=== PATIENT | male | born 1955 | race Two or more races ===

== ENCOUNTER 2018-04-08 14:37 | Inpatient (IN) | payer MEDICAID, OTHER ==
[~2018-04-08] VITALS: Ht 180.3 cm; Wt 83.0 kg
[2018-04-08] MEDS ORDERED: ASPirin 81 mg TAB PO ONE (15:45)
[2018-04-08] MEDS ORDERED: ONDANSETRON HCL 4 MG/2 ML VIAL IV ONE (15:45)
[2018-04-08] MEDS ORDERED: SODIUM CHLORIDE 0.9% 1,000 ML IV ONE ×2 (15:45→17:15)
[2018-04-08 16:12] LABS: Basophils # (auto) 0.1 uL; Basophils % (auto) 0.8 % (0.0-2.0); Eosinophils # (auto) 0.1 uL; Eosinophils % (auto) 0.7 % (0.0-7.0); Hematocrit 39.4 % (41.0-53.0); Hemoglobin 13.5 g/dL (13.5-17.5); Lymphocytes # (auto) 1.4 uL; Lymphocytes % (auto) 12.5 % (10.0-50.0); Mean Corpuscular Hemoglobin 32.4 pg (28.0-32.0); Mean Corpuscular Hgb Conc. 34.3 g/dL (32.0-36.0); Mean Corpuscular Volume 94.4 fL (80.0-100.0); Monocytes # (auto) 0.7 uL; Monocytes % (auto) 6.7 % (0.0-12.0); Neutrophils # (auto) 8.6 uL; Neutrophils % (auto) 79.3 % (37.0-80.0); Platelet Count (auto) 153 10^3/uL (140-450); Red Blood Cells 4.17 10^6/uL (4.5-5.90); Red Cell Distribution Width 14.2 % (11.8-14.3); White Blood Cell 10.8 10^3/uL (4.4-10.8)
[2018-04-08 16:25] LABS: INR 1.15 (0.9-1.15); Partial Thromboplastin Time 34.8 sec (23.78-33.04); Prothrombin Time 12.2 sec (9.27-12.13)
[2018-04-08 16:43] LABS: Albumin 3.4 g/dL (3.4-5.0); BUN/Creatinine Ratio 8.3; Bilirubin, Total 1.3 mg/dL (0.2-1.0); Calcium 8.3 mg/dL (8.5-10.1); Potassium 3.8 mmol/L (3.5-5.1); Total Protein 7.8 g/dL (6.4-8.2)
[2018-04-08] MEDS ORDERED: ENOXAPARIN SOD 80 MG/0.8ML SYRINGE SC ONE (17:00)
[2018-04-08] MEDS ORDERED: NITROGLYCERIN 0.4 MG SL TAB SL ONE (17:00)
[2018-04-08] MEDS ORDERED: LORazepam 0.5 MG TAB PO PRN (17:15)
[2018-04-08] MEDS ORDERED: ALBUTEROL SULF 2.5 MG/0.5ML(0.5%) NEB SOLN NEB PRN (17:15)
[2018-04-08] MEDS ORDERED: ACETAMINOPHEN 500 MG TAB PO PRN (17:15)
[2018-04-08] MEDS ORDERED: NITROGLYCERIN 0.4 MG SL TAB SL PRN (17:15)
[2018-04-08] MEDS ORDERED: PROMETHAZINE HCL 25 MG/ML 1ML IV PRN (17:15)
[2018-04-08] MEDS: ALBUTEROL SULF 2.5 MG/0.5ML(0.5%) NEB SOLN NEB SCH ×2 (18:10→23:07)
[2018-04-08] MEDS: SODIUM CHLORIDE 0.9% 1,000 ML IV SCH (18:22)
[2018-04-08] MEDS: PANTOPRAZOLE 40 MG TAB PO SCH (18:22)
[2018-04-08] MEDS: DOXYCYCLINE 100MG/250ML 250 ML IV SCH (18:22)
[2018-04-08 18:52] VITALS: BP 98/64
[2018-04-08 20:47] LABS: Alcohol, Urine < 3.0 mg/dL (0-5); Amphetamine Screen, Urine NEGATIVE (NEGATIVE); Barbiturate Scree,Urine NEGATIVE (NEGATIVE); Benzodiazephine Screen, Urine POSITIVE (NEGATIVE); Cannabinoid Screen, Urine NEGATIVE (NEGATIVE); Cocaine Screen, Urine NEGATIVE (NEGATIVE); Opiate Scree,Urine POSITIVE (NEGATIVE); Phencyclidine Screen, Urine NEGATIVE (NEGATIVE)
[2018-04-08] MEDS: ENOXAPARIN SOD 80 MG/0.8ML SYRINGE SC SCH (21:25)
[2018-04-08] MEDS: ATORVASTATIN 20 MG TAB PO SCH (21:25)
[2018-04-09] VITALS (8 sets, daily range): BP systolic 113–132; BP diastolic 53–73
[2018-04-09] MEDS: SODIUM CHLORIDE 0.9% 1,000 ML IV SCH ×3 (01:09→16:17)
[2018-04-09] MEDS: TEMAZEPAM 15 MG CAP PO PRN ×2 (02:00→21:52)
[2018-04-09] MEDS: MORPHINE SULFATE 4 MG/ML SYR/VIAL IV PRN ×3 (02:26→17:25)
[2018-04-09] MEDS ORDERED: PRO20T GT (05:05)
[2018-04-09] MEDS ORDERED: OMEP20TA PO (05:05)
[2018-04-09] MEDS ORDERED: ALBUAER3 IN ×2 (05:13→05:23)
[2018-04-09] MEDS ORDERED: PRAM0.5T PO (05:13)
[2018-04-09] MEDS ORDERED: TEMA30CA PO (05:13)
[2018-04-09] MEDS ORDERED: PERCOT PO (05:13)
[2018-04-09] MEDS ORDERED: ALPR0.5T7 PO (05:13)
[2018-04-09] MEDS ORDERED: ALPR0.254 PO (05:15)
[2018-04-09] MEDS ORDERED: CARB1TAB44 PO (05:15)
[2018-04-09] MEDS ORDERED: METO10TA3 PO (05:15)
[2018-04-09] MEDS ORDERED: DICL1GEL26 (05:23)
[2018-04-09] MEDS ORDERED: MORP30TA (05:23)
[2018-04-09] MEDS ORDERED: DOCU-94 PO (05:23)
[2018-04-09] MEDS ORDERED: TIOTCAP IN (05:23)
[2018-04-09] MEDS ORDERED: CARB25TA22 PO (05:23)
[2018-04-09] MEDS ORDERED: CHOL20007 PO (05:23)
[2018-04-09] MEDS ORDERED: FLUT500M2 INH (05:23)
[2018-04-09] MEDS ORDERED: ATOR10TA52 PO (05:23)
[2018-04-09] MEDS ORDERED: TAMS0.4C36 (05:23)
[2018-04-09] MEDS: DOXYCYCLINE 100MG/250ML 250 ML IV SCH ×2 (06:00→16:50)
[2018-04-09 06:16] LABS: Basophils # (auto) 0.1 uL; Basophils % (auto) 1.1 % (0.0-2.0); Eosinophils # (auto) 0.2 uL; Eosinophils % (auto) 3.1 % (0.0-7.0); Hematocrit 36.4 % (41.0-53.0); Hemoglobin 12.1 g/dL (13.5-17.5); Lymphocytes # (auto) 1.4 uL; Lymphocytes % (auto) 17.7 % (10.0-50.0); Mean Corpuscular Hemoglobin 31.8 pg (28.0-32.0); Mean Corpuscular Hgb Conc. 33.3 g/dL (32.0-36.0); Mean Corpuscular Volume 95.5 fL (80.0-100.0); Monocytes # (auto) 0.5 uL; Monocytes % (auto) 6.9 % (0.0-12.0); Neutrophils # (auto) 5.7 uL; Neutrophils % (auto) 71.2 % (37.0-80.0); Nucleated Red Blood Cells % 0.1 %; Platelet Count (auto) 98 10^3/uL (140-450); Red Blood Cells 3.81 10^6/uL (4.5-5.90); Red Cell Distribution Width 14.5 % (11.8-14.3); White Blood Cell 7.9 10^3/uL (4.4-10.8)
[2018-04-09] MEDS: HYDROcodone-ACET 5/325MG TAB PO PRN (06:38)
[2018-04-09 06:41] LABS: Albumin 2.3 g/dL (3.4-5.0); BUN/Creatinine Ratio 12.2; Calcium 7.8 mg/dL (8.5-10.1); Total Protein 6.4 g/dL (6.4-8.2)
[2018-04-09] MEDS: ALBUTEROL SULF 2.5 MG/0.5ML(0.5%) NEB SOLN NEB SCH ×3 (06:47→18:22)
[2018-04-09] MEDS: MORPHINE SULF INJ 2 MG/ML SYRINGE 1ML IV PRN (09:07)
[2018-04-09] MEDS: ASPirin 81 mg TAB PO SCH (09:07)
[2018-04-09] MEDS: ENOXAPARIN SOD 80 MG/0.8ML SYRINGE SC SCH ×2 (09:07→21:51)
[2018-04-09] MEDS: PANTOPRAZOLE 40 MG TAB PO SCH (09:07)
[2018-04-09] MEDS: METOPROLOL TARTRATE 25 MG TAB PO SCH ×2 (10:00→21:51)
[2018-04-09] MEDS: ATORVASTATIN 20 MG TAB PO SCH (21:50)
[2018-04-10] MEDS: ALBUTEROL SULF 2.5 MG/0.5ML(0.5%) NEB SOLN NEB SCH ×5 (00:27→19:05)
[2018-04-10] MEDS: SODIUM CHLORIDE 0.9% 1,000 ML IV SCH ×4 (00:45→23:43)
[2018-04-10] MEDS: MORPHINE SULFATE 4 MG/ML SYR/VIAL IV PRN (02:35)
[2018-04-10 05:24] VITALS: BP 117/53
[2018-04-10] MEDS: DOXYCYCLINE 100MG/250ML 250 ML IV SCH ×2 (06:00→18:08)
[2018-04-10] MEDS: HYDROcodone-ACET 5/325MG TAB PO PRN (06:32)
[2018-04-10 08:07] LABS: Alanine Aminotransferase 30 U/L (16-61); Albumin 2.5 g/dL (3.4-5.0); Anion Gap 12 (5-15); Aspartate Aminotransferase 60 U/L (15-37); BUN/Creatinine Ratio 8.3; Blood Urea Nitrogen 6 mg/dL (7-18); Carbon Dioxide 21 mmol/L (21-32); Chloride 107 mmol/L (98-107); GFR African American 142 mL/min; GFR Non-African American 117 mL/min; Glucose 78 mg/dL (74-106); Sodium 140 mmol/L (136-145)
[2018-04-10 08:10] LABS: Alkaline Phosphatase 80 U/L (45-117); Bilirubin, Total 0.9 mg/dL (0.2-1.0); Total Protein 6.4 g/dL (6.4-8.2)
[2018-04-10 09:00] VITALS: BP 134/72
[2018-04-10 10:27] LABS: Calcium 8.7 mg/dL (8.5-10.1)
[2018-04-10 10:30] LABS: Basophils # (auto) 0 uL; Basophils % (auto) 0.8 % (0.0-2.0); Eosinophils # (auto) 0.1 uL; Eosinophils % (auto) 2.7 % (0.0-7.0); Hematocrit 36.8 % (41.0-53.0); Hemoglobin 12.2 g/dL (13.5-17.5); Lymphocytes # (auto) 1.1 uL; Lymphocytes % (auto) 22.5 % (10.0-50.0); Mean Corpuscular Hemoglobin 30.6 pg (28.0-32.0); Mean Corpuscular Hgb Conc. 33.1 g/dL (32.0-36.0); Mean Corpuscular Volume 92.4 fL (80.0-100.0); Monocytes # (auto) 0.5 uL; Monocytes % (auto) 9.3 % (0.0-12.0); Neutrophils # (auto) 3.3 uL; Neutrophils % (auto) 64.7 % (37.0-80.0); Platelet Count (auto) 132 10^3/uL (140-450); Red Blood Cells 3.98 10^6/uL (4.5-5.90); White Blood Cell 5.1 10^3/uL (4.4-10.8)
[2018-04-10] MEDS: PANTOPRAZOLE 40 MG TAB PO SCH (11:28)
[2018-04-10] MEDS: ENOXAPARIN SOD 80 MG/0.8ML SYRINGE SC SCH (11:28)
[2018-04-10] MEDS: METOPROLOL TARTRATE 25 MG TAB PO SCH ×2 (11:28→22:02)
[2018-04-10] MEDS: ASPirin 81 mg TAB PO SCH (11:30)
[2018-04-10 13:00] VITALS: BP 135/79
[2018-04-10] MEDS ORDERED: LEVOFLOXACIN 500MG 100 ML IV SCH (13:00)
[2018-04-10] MEDS: LEVOFLOXACIN 500MG 100 ML IV SCH (16:05)
[2018-04-10] MEDS: MORPHINE SULF INJ 2 MG/ML SYRINGE 1ML IV PRN ×3 (16:06→22:03)
[2018-04-10 17:00] VITALS: BP 123/73
[2018-04-10 17:38] LABS: Urine Bacteria NONE SEEN /hpf (None Seen); Urine Blood Negative /uL (Negative); Urine Specific Gravity 1.008 (1.001-1.035); Urine WBC <1 /hpf (0 - 3)
[2018-04-10 20:00] VITALS: BP 140/71
[2018-04-10 22:00] VITALS: BP 140/71
[2018-04-10] MEDS: ATORVASTATIN 20 MG TAB PO SCH (22:01)
[2018-04-10] MEDS: TEMAZEPAM 15 MG CAP PO PRN (22:03)
[2018-04-11] MEDS: ALBUTEROL SULF 2.5 MG/0.5ML(0.5%) NEB SOLN NEB SCH ×5 (00:45→23:30)
[2018-04-11] MEDS: MORPHINE SULF INJ 2 MG/ML SYRINGE 1ML IV PRN ×5 (02:32→21:45)
[2018-04-11 05:00] VITALS: BP 134/81
[2018-04-11 06:16] LABS: Basophils # (auto) 0 uL; Basophils % (auto) 0.8 % (0.0-2.0); Eosinophils # (auto) 0.2 uL; Eosinophils % (auto) 3.7 % (0.0-7.0); Hemoglobin 13.7 g/dL (13.5-17.5); Lymphocytes # (auto) 1.7 uL; Lymphocytes % (auto) 33.3 % (10.0-50.0); Mean Corpuscular Hemoglobin 32.1 pg (28.0-32.0); Mean Corpuscular Hgb Conc. 33.5 g/dL (32.0-36.0); Mean Corpuscular Volume 95.6 fL (80.0-100.0); Monocytes # (auto) 0.5 uL; Monocytes % (auto) 9.1 % (0.0-12.0); Neutrophils # (auto) 2.7 uL; Neutrophils % (auto) 53.1 % (37.0-80.0); Nucleated Red Blood Cells % 0.2 %; Platelet Count (auto) 151 10^3/uL (140-450); Red Blood Cells 4.29 10^6/uL (4.5-5.90); Red Cell Distribution Width 14.3 % (11.8-14.3)
[2018-04-11] MEDS: DOXYCYCLINE 100MG/250ML 250 ML IV SCH (06:22)
[2018-04-11 06:28] LABS: Potassium 4.3 mmol/L (3.5-5.1)
[2018-04-11 09:00] VITALS: BP 129/69
[2018-04-11] MEDS: METOPROLOL TARTRATE 25 MG TAB PO SCH ×2 (09:51→21:45)
[2018-04-11] MEDS: PANTOPRAZOLE 40 MG TAB PO SCH (09:51)
[2018-04-11] MEDS: ASPirin 81 mg TAB PO SCH (09:51)
[2018-04-11] MEDS: LEVOFLOXACIN 500MG 100 ML IV SCH (09:52)
[2018-04-11] MEDS: ENOXAPARIN SOD 40 MG/0.4 ML SYRINGE SC SCH (09:53)
[2018-04-11 11:06] LABS: INR 1.03 (0.9-1.15); Partial Thromboplastin Time 34.2 sec (23.78-33.04)
[2018-04-11 13:00] VITALS: BP 121/62
[2018-04-11] MEDS: SODIUM CHLORIDE 0.9% 1,000 ML IV SCH ×3 (14:00→21:57)
[2018-04-11] MEDS: HYDROcodone-ACET 5/325MG TAB PO PRN (16:20)
[2018-04-11 17:00] VITALS: BP 123/81
[2018-04-11] MEDS: TEMAZEPAM 15 MG CAP PO PRN (21:44)
[2018-04-11] MEDS: ATORVASTATIN 20 MG TAB PO SCH (21:44)
[2018-04-11 22:00] VITALS: BP 122/76
[2018-04-12] VITALS (7 sets, daily range): BP systolic 120–139; BP diastolic 69–85
[2018-04-12] MEDS: HYDROcodone-ACET 5/325MG TAB PO PRN ×3 (00:57→21:56)
[2018-04-12] MEDS: MORPHINE SULF INJ 2 MG/ML SYRINGE 1ML IV PRN ×6 (02:53→20:13)
[2018-04-12] MEDS: ALBUTEROL SULF 2.5 MG/0.5ML(0.5%) NEB SOLN NEB SCH ×3 (05:44→19:22)
[2018-04-12] MEDS: SODIUM CHLORIDE 0.9% 1,000 ML IV SCH ×2 (07:00→17:09)
[2018-04-12 09:13] LABS: Hemoglobin 13.1 g/dL (13.5-17.5); Mean Corpuscular Hemoglobin 31.8 pg (28.0-32.0); Mean Corpuscular Hgb Conc. 34.5 g/dL (32.0-36.0); Mean Corpuscular Volume 91.9 fL (80.0-100.0); Platelet Count (auto) 129 10^3/uL (140-450); Red Blood Cells 4.13 10^6/uL (4.5-5.90); Red Cell Distribution Width 13.8 % (11.8-14.3); White Blood Cell 7.1 10^3/uL (4.4-10.8)
[2018-04-12 09:31] LABS: Anion Gap 8 (5-15); BUN/Creatinine Ratio 4.5; Blood Urea Nitrogen 3 mg/dL (7-18); Calcium 7.8 mg/dL (8.5-10.1); Carbon Dioxide 23 mmol/L (21-32); Chloride 110 mmol/L (98-107); GFR African American 157 mL/min; GFR Non-African American 130 mL/min; Glucose 86 mg/dL (74-106); Potassium 3.6 mmol/L (3.5-5.1); Sodium 141 mmol/L (136-145)
[2018-04-12] MEDS: ENOXAPARIN SOD 40 MG/0.4 ML SYRINGE SC SCH (10:00)
[2018-04-12] MEDS: ASPirin 81 mg TAB PO SCH (10:00)
[2018-04-12] MEDS: PANTOPRAZOLE 40 MG TAB PO SCH (10:48)
[2018-04-12] MEDS: LEVOFLOXACIN 500MG 100 ML IV SCH (10:48)
[2018-04-12] MEDS: METOPROLOL TARTRATE 25 MG TAB PO SCH ×2 (10:49→21:53)
[2018-04-12 11:33] LABS: Basophils % (manual) 0 (0.0-2.0); Blast Cells 0; Metamyelocytes % 0; Myelocytes % 0; Promyelocytes % 0
[2018-04-12 11:34] LABS: Band Neutrophils % (manual) 2; Eosinophils % (manual) 10 (0-7); Lymphocytes % (manual) 18 (10.0-50.0); Monocytes % (manual) 6 (0-12); Reactive Lymphocytes 1
[2018-04-12] MEDS: ATORVASTATIN 20 MG TAB PO SCH (21:53)
[2018-04-12] MEDS: TEMAZEPAM 15 MG CAP PO PRN (22:02)
[2018-04-13] MEDS: ALBUTEROL SULF 2.5 MG/0.5ML(0.5%) NEB SOLN NEB SCH ×4 (00:23→19:46)
[2018-04-13] MEDS: SODIUM CHLORIDE 0.9% 1,000 ML IV SCH ×3 (01:20→17:09)
[2018-04-13] MEDS: MORPHINE SULF INJ 2 MG/ML SYRINGE 1ML IV PRN ×5 (01:45→21:56)
[2018-04-13 05:34] VITALS: BP 137/73
[2018-04-13 06:19] LABS: Basophils # (auto) 0.1 uL; Basophils % (auto) 1.2 % (0.0-2.0); Eosinophils # (auto) 0.4 uL; Eosinophils % (auto) 7.2 % (0.0-7.0); Hemoglobin 12.8 g/dL (13.5-17.5); Lymphocytes # (auto) 1.8 uL; Lymphocytes % (auto) 33.7 % (10.0-50.0); Mean Corpuscular Hemoglobin 31.8 pg (28.0-32.0); Mean Corpuscular Hgb Conc. 33.8 g/dL (32.0-36.0); Mean Corpuscular Volume 93.9 fL (80.0-100.0); Monocytes # (auto) 0.7 uL; Neutrophils # (auto) 2.4 uL; Neutrophils % (auto) 44.9 % (37.0-80.0); Nucleated Red Blood Cells % 0.1 %; Platelet Count (auto) 149 10^3/uL (140-450); Red Blood Cells 4.04 10^6/uL (4.5-5.90); Red Cell Distribution Width 13.7 % (11.8-14.3); White Blood Cell 5.4 10^3/uL (4.4-10.8)
[2018-04-13 06:43] LABS: Calcium 8.1 mg/dL (8.5-10.1); Potassium 3.6 mmol/L (3.5-5.1)
[2018-04-13 06:45] LABS: BUN/Creatinine Ratio 6.2
[2018-04-13 08:52] VITALS: BP 128/76
[2018-04-13] MEDS: LEVOFLOXACIN 500MG 100 ML IV SCH (09:45)
[2018-04-13] MEDS: PANTOPRAZOLE 40 MG TAB PO SCH (09:47)
[2018-04-13] MEDS: HYDROcodone-ACET 5/325MG TAB PO PRN ×2 (09:47→19:31)
[2018-04-13] MEDS: METOPROLOL TARTRATE 25 MG TAB PO SCH ×2 (09:47→21:56)
[2018-04-13] MEDS: ENOXAPARIN SOD 40 MG/0.4 ML SYRINGE SC SCH (10:00)
[2018-04-13] MEDS: ASPirin 81 mg TAB PO SCH (10:00)
[2018-04-13 11:50] VITALS: BP 128/86
[2018-04-13 17:38] VITALS: BP 111/61
[2018-04-13 21:34] VITALS: BP 119/63
[2018-04-13] MEDS: ATORVASTATIN 20 MG TAB PO SCH (21:55)
[2018-04-14] MEDS: ALBUTEROL SULF 2.5 MG/0.5ML(0.5%) NEB SOLN NEB SCH (00:36)
[2018-04-14] MEDS: TEMAZEPAM 15 MG CAP PO PRN (00:55)
[2018-04-14] MEDS: SODIUM CHLORIDE 0.9% 1,000 ML IV SCH ×2 (00:57→09:09)
[2018-04-14 05:05] VITALS: BP 137/65
[2018-04-14] MEDS: MORPHINE SULF INJ 2 MG/ML SYRINGE 1ML IV PRN (05:16)
[2018-04-14 05:50] LABS: Basophils # (auto) 0.1 uL; Eosinophils # (auto) 0.4 uL; Eosinophils % (auto) 6.6 % (0.0-7.0); Hematocrit 39.6 % (41.0-53.0); Hemoglobin 13.4 g/dL (13.5-17.5); Lymphocytes # (auto) 2.1 uL; Lymphocytes % (auto) 36.6 % (10.0-50.0); Mean Corpuscular Hemoglobin 31.9 pg (28.0-32.0); Mean Corpuscular Hgb Conc. 33.8 g/dL (32.0-36.0); Mean Corpuscular Volume 94.2 fL (80.0-100.0); Monocytes # (auto) 0.6 uL; Monocytes % (auto) 10.8 % (0.0-12.0); Neutrophils # (auto) 2.6 uL; Nucleated Red Blood Cells % 0.1 %; Platelet Count (auto) 158 10^3/uL (140-450); Red Blood Cells 4.21 10^6/uL (4.5-5.90); Red Cell Distribution Width 13.6 % (11.8-14.3); White Blood Cell 5.7 10^3/uL (4.4-10.8)
[2018-04-14 06:33] LABS: BUN/Creatinine Ratio 6.3; Calcium 8.1 mg/dL (8.5-10.1); Potassium 3.8 mmol/L (3.5-5.1)
[2018-04-14 08:30] VITALS: BP 117/62
[2018-04-14 09:00] VITALS: BP 117/62
[2018-04-14] MEDS: ENOXAPARIN SOD 40 MG/0.4 ML SYRINGE SC SCH (10:00)
[2018-04-14] MEDS: PANTOPRAZOLE 40 MG TAB PO SCH (10:00)
[2018-04-14] MEDS: LEVOFLOXACIN 500MG 100 ML IV SCH (10:00)
[2018-04-14] MEDS: METOPROLOL TARTRATE 25 MG TAB PO SCH (10:00)
[2018-04-14] MEDS: ASPirin 81 mg TAB PO SCH (10:00)
[2018-04-14] MEDS: HYDROcodone-ACET 5/325MG TAB PO PRN (11:18)
[2018-04-14 11:45] VITALS: BP 117/62
[2018-04-14 13:00] VITALS: BP 118/60
== END 2018-04-14 17:25 | disposition home health service (06) | DRG 720 ==
LOC: ER 14:37 → TELE 14:38 → TELE-CENTR 23:55
PROVIDERS: ADMIT Internal Medicine; ATTEND Internal Medicine
DX: A41.50 Gram-negative sepsis, unspecified (principal); I21.4 Non-ST elevation (NSTEMI) myocardial infarction; N17.0 Acute kidney failure with tubular necrosis; G12.21 Amyotrophic lateral sclerosis; G93.41 Metabolic encephalopathy; E43 Unspecified severe protein-calorie malnutrition; D69.6 Thrombocytopenia, unspecified; I11.0 Hypertensive heart disease with heart failure; R91.1 Solitary pulmonary nodule; B96.1 Klebsiella pneumoniae [K. pneumoniae] as the cause of diseases classified elsewhere; I50.9 Heart failure, unspecified; L03.116 Cellulitis of left lower limb; K80.20 Calculus of gallbladder without cholecystitis without obstruction; I25.10 Atherosclerotic heart disease of native coronary artery without angina pectoris; J43.9 Emphysema, unspecified; B19.20 Unspecified viral hepatitis C without hepatic coma; G20 Parkinson's disease; I13.0 Hypertensive heart and chronic kidney disease with heart failure and stage 1 through stage 4 chronic kidney disease, or unspecified chronic kidney disease; K74.60 Unspecified cirrhosis of liver; N18.9 Chronic kidney disease, unspecified; Z87.891 Personal history of nicotine dependence; Z98.61 Coronary angioplasty status; Z88.0 Allergy status to penicillin; Z87.828 Personal history of other (healed) physical injury and trauma; Z79.899 Other long term (current) drug therapy; Z79.82 Long term (current) use of aspirin
CPT/HCPCS: 36415; 70450; 71045; 71250; 76705; 80048; 80053; 80061; 80307; 81001; 82140; 82150; 82550; 83605; 83880; 84443; 84484; 85007; 85025; 85027; 85379; 85610; 85652; 85730; 86141; 86850; 86900; 86901; 87040; 87070; 87077; 87086; 87186; 87205; 92610; 93005; 93306; 93970; 94640; 96361; 96372; 96374; A6257; J1956; J2405; J3490

== ENCOUNTER 2019-03-13 16:01 | Emergency (ER) | payer MEDICAID ==
[~2019-03-13] VITALS: Ht 180.3 cm; Wt 72.6 kg
[2019-03-13 16:01] VITALS: BP 0/0
[~2019-03-13 16:01] MED LIST: ALBUAER3 IN; ALPR0.254 PO; ATOR10TA52 PO; CARB25TA22 PO; CHOL20007 PO; DICL1GEL26; DOCU-94 PO; FLUT500M2 INH; METO10TA3 PO; MORP30TA; OMEP20TA PO; PERCOT PO; PRAM0.5T PO; TAMS0.4C36; TEMA30CA PO; TIOTCAP IN
[2019-03-13] MEDS ORDERED: SODIUM BICARBONATE 8.4% INJ 50ML SYRINGE IV ONE (16:04)
[2019-03-13] MEDS ORDERED: DEXTROSE (50%) 50ML SYRG IV ONE (16:04)
[2019-03-13] MEDS ORDERED: EPINEPHrine HCL 1 MG/10 ML SYRG IV ONE (16:04)
== END 2019-03-13 16:11 | disposition expired ==
LOC: EDBD 16:01 → ER 16:03
DX: I46.9 Cardiac arrest, cause unspecified (principal); E16.2 Hypoglycemia, unspecified; J44.9 Chronic obstructive pulmonary disease, unspecified; I10 Essential (primary) hypertension; Z88.0 Allergy status to penicillin; Z79.899 Other long term (current) drug therapy
CPT/HCPCS: 92950; 99285; J0171; J7042